=== PATIENT | male | born 1950 | race Caucasian/White ===

== ENCOUNTER 2024-09-12 16:11 | Inpatient (IN) | payer MEDICARE ==
[~2024-09-12] VITALS: Ht 172.7 cm; Wt 81.7 kg
[~2024-09-12 16:11] MED LIST: FURO20 PO; LISI20 PO
[2024-09-12 17:10] LABS: BASOPHILS ABSOLUTE AUTO 0.04 K/mm3 (0.00-0.23); BASOPHILS PERCENT AUTO 0 % (0-2); EOSINOPHILS ABSOLUTE AUTO 0.09 K/mm3 (0.00-0.68); EOSINOPHILS PERCENT AUTO 1 % (0-6); Hematocrit 52.1 % (37.0-53.0); Hemoglobin 17.3 g/dL (13.5-17.5); IMMATURE GRAN ABSOLUTE AUTO 0.09 K/mm3 (0.00-0.10); IMMATURE GRAN PERCENT AUTO 1 % (0-1); LYMPHOCYTES ABSOLUTE AUTO 1.36 K/mm3 (0.84-5.20); LYMPHOCYTES PERCENT AUTO 8 % (21-46); MONOCYTES ABSOLUTE AUTO 0.94 K/mm3 (0.16-1.47); MONOCYTES PERCENT AUTO 6 % (4-13); Mean Corpuscular HGB 30.2 pg (26.0-34.0); Mean Corpuscular HGB Conc 33.2 g/dL (31.5-36.5); Mean Corpuscular Volume 91 fL (80-100); Mean Platelet Volume 9.8 fL (9.1-12.4); NEUTROPHILS ABSOLUTE AUTO 13.61 K/mm3 (1.96-9.15); NEUTROPHILS PERCENT AUTO 84 % (41-73); Platelet Count 265 K/mm3 (150-400); RDW Coefficient Variation 13.3 % (11.7-14.2); RDW Standard Deviation 45.1 fL (35.1-46.3); Red Blood Cell Count 5.72 M/mm3 (4.30-5.90); White Blood Cell Count 16.13 K/mm3 (4.00-11.30)
[2024-09-12] MEDS ORDERED: NS 1,000 ML IV SCH (17:15)
[2024-09-12] MEDS ORDERED: Clindamycin 900mg in D5W 50ML 50 ML IV ONE (17:15)
[2024-09-12 17:30] LABS: Albumin, Blood 3.3 g/dL (3.4-5.0); Albumin/Globulin Ratio 0.8 (0.8-1.8); Bilirubin, Total 0.6 mg/dL (0.1-1.0); Bun/Creatinine Ratio 16.3 (12.0-20.0); Calcium, Blood 9.2 mg/dL (8.5-10.1); Creatinine, Blood 0.98 mg/dL (0.60-1.20); Globulin, Blood 4.3 g/dL (2.2-4.0); Potassium, Blood 4.4 mmol/L (3.5-5.5); Total Protein, Blood 7.6 g/dL (6.4-8.2)
[2024-09-12 18:42] LABS: Source, Urine Clean Catch
[2024-09-12 18:45] LABS: Appearance, Urine Hazy (Clear); Bilirubin, Urine Neg (Neg); Blood, Urine 1+ (Neg); Color, Urine Yellow (P-Yellow); Glucose Qualitative, Urine Neg (Neg); Ketones, Urine Neg (Neg); Leukocyte Esterase, Urine 2+ (Neg); Nitrite, Urine Neg (Neg); Protein, Urine 1+ (Neg); Urobilinogen, Urine NORM (Normal)
[2024-09-12 18:52] LABS: Bacteria Few /hpf; Mucus Light (0-Heavy); Squamous Epithelial Cells Few /hpf (Few); White Blood Cells, Urine 25-50 /hpf (0-5)
[2024-09-12 18:52] LABS: Influenza A, PCR NEGATIVE (NEGATIVE); Influenza B, PCR NEGATIVE (NEGATIVE); Resp Syncytial Virus, PCR NEGATIVE (NEGATIVE); SARS-Cov-2 (COVID-19) PCR, MMC NEGATIVE (NEGATIVE)
[2024-09-12] MEDS ORDERED: Acetaminophen 500 MG Tab PO ONE (18:55)
[2024-09-12] MEDS ORDERED: CefTRIAXone Sodium 1,000 MG in NS 100 ML IV ONE (19:00)
[2024-09-12] MEDS ORDERED: Lactated Ringer's 1,000 ML IV SCH (19:35)
[2024-09-12] MEDS ORDERED: FLU VACC TS2024-25(6MOS UP)/PF 45 MCG/0.5 ML SYRINGE IM ONE (19:35)
[2024-09-12] MEDS ORDERED: Ondansetron HCl 2 MG / ML 2ML Vial IV PRN (19:35)
[2024-09-12] MEDS ORDERED: Ketorolac Tromethamine 15mg Vial IV ONE (20:00)
[2024-09-12] MEDS ORDERED: Vancomycin HCL 1,250 MG in NS 250 ML IV ONE (20:05)
[2024-09-12] MEDS ORDERED: Sennosides 8.6 MG Tab PO SCH (21:00)
[2024-09-12] MEDS ORDERED: Lactobacil 2-S.Thermo-Bifido 1 1 Cap PO SCH (21:00)
[2024-09-12 22:44] VITALS: BP 139/79
[2024-09-13 05:09] VITALS: BP 166/85
--- NOTE | 2024-09-13 06:02 | NUR ---
SHIFT SUMMARY PT ADMITTED LAST NIGHT AT 2230. 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 NASAL SWAB COLLECTED AND SENT TO THE LAB. PICTURE TAKEN OF ABSCESS/ CELLULITIS AFTER CONSENT OBTAINED. PICTURE IN CHART. WOUND WITH SMALL AMOUNTS OF SEROSANG DRAINAGE. LEFT OPEN TO AIR WITH CHUX UNDERNEATH DUE TO PENDING ULTRASOUND TO THE AREA. PT DENIES PAIN. SLEPT ON/OF THROUGH THE NIGHT. BED IN LOWEST POSITION, CALL LIGHT WITHIN REACH, SIDE RAILS UP X2.
[2024-09-13 06:48] LABS: BASOPHILS ABSOLUTE AUTO 0.03 K/mm3 (0.00-0.23); BASOPHILS PERCENT AUTO 0 % (0-2); EOSINOPHILS ABSOLUTE AUTO 0.22 K/mm3 (0.00-0.68); EOSINOPHILS PERCENT AUTO 2 % (0-6); Hematocrit 46.4 % (37.0-53.0); Hemoglobin 14.9 g/dL (13.5-17.5); IMMATURE GRAN ABSOLUTE AUTO 0.05 K/mm3 (0.00-0.10); IMMATURE GRAN PERCENT AUTO 0 % (0-1); LYMPHOCYTES ABSOLUTE AUTO 1.36 K/mm3 (0.84-5.20); LYMPHOCYTES PERCENT AUTO 10 % (21-46); MONOCYTES ABSOLUTE AUTO 1.13 K/mm3 (0.16-1.47); MONOCYTES PERCENT AUTO 9 % (4-13); Mean Corpuscular HGB 29.7 pg (26.0-34.0); Mean Corpuscular HGB Conc 32.1 g/dL (31.5-36.5); Mean Corpuscular Volume 93 fL (80-100); Mean Platelet Volume 10.3 fL (9.1-12.4); NEUTROPHILS ABSOLUTE AUTO 10.44 K/mm3 (1.96-9.15); NEUTROPHILS PERCENT AUTO 79 % (41-73); Platelet Count 237 K/mm3 (150-400); RDW Coefficient Variation 13.5 % (11.7-14.2); RDW Standard Deviation 45.9 fL (35.1-46.3); Red Blood Cell Count 5.01 M/mm3 (4.30-5.90); White Blood Cell Count 13.23 K/mm3 (4.00-11.30)
[2024-09-13 07:13] LABS: Bun/Creatinine Ratio 18.4 (12.0-20.0); Calcium, Blood 8.4 mg/dL (8.5-10.1); Creatinine, Blood 0.92 mg/dL (0.60-1.20); Potassium, Blood 3.8 mmol/L (3.5-5.5)
[2024-09-13 07:30] VITALS: BP 151/88
[2024-09-13] MEDS ORDERED: Vancomycin HCL 1,000 MG in NS 250 ML IV SCH (08:00)
[2024-09-13] MEDS ORDERED: Enoxaparin 40 MG/0.4 ML SYR SC SCH (09:00)
[2024-09-13] MEDS ORDERED: Lisinopril 10 MG Tab PO SCH (09:00)
[2024-09-13] MEDS ORDERED: NS 250 ML IV PRN (10:40)
[2024-09-13] MEDS ORDERED: Lisinopril 10 MG Tab PO ONE (12:00)
[2024-09-13 12:54] VITALS: BP 124/79
[2024-09-13 17:03] VITALS: BP 144/88
--- NOTE | 2024-09-13 17:36 | NUR ---
SHIFT SUMMARY: PATIENT A/OX3, PLEASANT AND COOPERATIVE c CARE. PATIENT DENIES CP/PRESSURE, SOB, N/V AND DIZZINESS. PATIENT HAS HAD NO FEVER THIS SHIFT. PATIENT HAS SKIN BOILS TO LOWER BACK, IT IS OPEN c SCANT DRAINAIGE, FIRM, RED AROUND THE SITE AND SPREAD TO L SIDE, OUTLINE MARKING IN PLACED. DR. OSCAR AND DR. MCKEON IS AWARE OF THIS ISSUE. MIPELEX DRESSING IN PLACED TO LOWER BACK. PATIENT HAD PT EVAL TODAY, RECOMMENDING [facility]. PATIENT HAS GREAT APPETITE, CONTINENT OF BOWEL/BLADDER, USES URINAL AND AMBULATES TO BATHROOM c SBA/FWW. PATIENT SAT UP IN CHAIR FOR ABOUT 4 HRS THIS SHIFT, TOLERATING WELL. PATIENT RECEIVED IV ABX/SCHEDULED MED PER EMAR. VITAL SIGNS REVIEWED. PATIENT CURRENTLY UP IN CHAIR FOR DINNER. CHAIR ALARM ON FOR SAFETY. CALL LIGHT IN REACH. PATIENT HAS NO COMPLAINTS OR DENIES NEW CONCERNED, BUT EXPRESSES WOULD LIKE TO GO HOME TOMORROW.
[2024-09-13 19:45] VITALS: BP 126/75
[2024-09-13] MEDS ORDERED: CefTRIAXone Sodium 1,000 MG in NS 100 ML IV SCH (20:00)
[2024-09-14] MEDS ORDERED: NS 250 ML IV PRN (00:20)
[2024-09-14 02:16] VITALS: BP 159/89
--- NOTE | 2024-09-14 05:45 | NUR ---
SHIFT SUMMARY: Pt is admitted for cutaneous abscess of back and is a full code. Is alert and able to make needs known. ADLs have been SBA. is on ISO for HX of MRSA. denies pain or discomfort when asked. Dressing to lower back is CDI.
[2024-09-14 07:23] LABS: BASOPHILS ABSOLUTE AUTO 0.04 K/mm3 (0.00-0.23); BASOPHILS PERCENT AUTO 0 % (0-2); EOSINOPHILS ABSOLUTE AUTO 0.35 K/mm3 (0.00-0.68); EOSINOPHILS PERCENT AUTO 4 % (0-6); Hematocrit 46.2 % (37.0-53.0); IMMATURE GRAN ABSOLUTE AUTO 0.03 K/mm3 (0.00-0.10); IMMATURE GRAN PERCENT AUTO 0 % (0-1); LYMPHOCYTES PERCENT AUTO 13 % (21-46); MONOCYTES ABSOLUTE AUTO 0.74 K/mm3 (0.16-1.47); MONOCYTES PERCENT AUTO 8 % (4-13); Mean Corpuscular HGB Conc 32.5 g/dL (31.5-36.5); Mean Corpuscular Volume 92 fL (80-100); NEUTROPHILS ABSOLUTE AUTO 7.41 K/mm3 (1.96-9.15); NEUTROPHILS PERCENT AUTO 75 % (41-73); Platelet Count 261 K/mm3 (150-400); RDW Coefficient Variation 13.5 % (11.7-14.2); RDW Standard Deviation 45.9 fL (35.1-46.3); White Blood Cell Count 9.87 K/mm3 (4.00-11.30)
[2024-09-14 07:41] LABS: Bun/Creatinine Ratio 12.8 (12.0-20.0); Calcium, Blood 8.8 mg/dL (8.5-10.1); Creatinine, Blood 1.09 mg/dL (0.60-1.20); Potassium, Blood 4.6 mmol/L (3.5-5.5)
[2024-09-14 07:52] VITALS: BP 143/90
[2024-09-14] MEDS ORDERED: Trimethoprim/Sulfamethoxazole DS Tab PO SCH (08:18)
[2024-09-14] MEDS ORDERED: Lisinopril 20 MG Tab PO SCH (09:00)
[2024-09-14] MEDS ORDERED: SULTRIDS PO (12:50)
[2024-09-14] MEDS ORDERED: MUPIROCIN1 G1 TOP (13:29)
--- NOTE | 2024-09-14 13:56 | NUR ---
SHIFT/DISCHARGE SUMMARY: PATIENT HAS HAD NO NEW ACUTE CHANGES THIS SHIFT. PATIENT A/OX3, FLAT AFFECT, PLEASANT AND COOPERATIVE c CARE. PATIENT DENIES CP/PRESSURE, N/V, SOB, AND DIZZINESS. PATIENT HAS HAD NO FEVER THIS SHIFT. PATIENT ABSCESS TO LOWER BACK, DRESSING CHANGED AND REDNESS TO L SIDE IT APPEARS NO CHANGES BASED ON AN OUTLINE MARKING. PATIENT RECEIVED PO ABX/SCHEDULED MEDS PER EMAR. VITAL SIGNS REVIEWED. PATIENT HAS GREAT APPETITE, CONTINENT OF BOWEL/BLADDER, AMBULATES TO BATHROOM c SBA AND HAD ONE LARGE BM THIS SHIFT. VITAL SIGNS REVIEWED. PIV TO LAC DC'D BY BHASKAR VAZQUEZ. PATIENT DISCHARGE HOME c [facility]. DISCHARGE INSTRUCTIONS PACKET GIVEN TO PATIENT. PATIENT EDUCATED ON ADMITTING DX'S OF CUTANEOUS ABSCESS TO LOWER BACK, TX, DAILY DRESSING CHANGED, NEW RX AND TO F/U c PCP. PATIENT VERBALIZED UNDERSTANDING AND NO FURTHER QUESTIONS. RX WAS FAXED TO PATIENT PREFERRED [facility]ARM[facility]. WOUND DRESSING SUPPLY AND PERSONAL BELONGINGS WERE SENT c PATIENT. PATIENT LEFT THE ROOM AT 1345, TRANSPORTED VIA WHEELCHAIR BY THIS RN TO PATIENT ENTRANCE.
== END 2024-09-14 13:57 | disposition home health service (06) | DRG 872 ==
LOC: ER 16:11 → MEDS 19:30 → ERHOLD 19:30 → MEDS 22:29
PROVIDERS: Emergency Medicine; Nurse Practitioner Acute Care; ADMIT Student in an Organized Health Care Education/Training Program
DX: A41.9 Sepsis, unspecified organism (principal); L03.312 Cellulitis of back [any part except buttock and flank]; N39.0 Urinary tract infection, site not specified; I10 Essential (primary) hypertension; F90.9 Attention-deficit hyperactivity disorder, unspecified type; R39.15 Urgency of urination; L30.9 Dermatitis, unspecified; Z79.899 Other long term (current) drug therapy; Z91.81 History of falling; Z86.14 Personal history of Methicillin resistant Staphylococcus aureus infection
CPT/HCPCS: 0241U; 36415; 71046; 76705; 80048; 80053; 81001; 83605; 84484; 85025; 87086; 93005; 93010; 96365; 97116; 97162; 97530; 99285-25; A9270; J0696; J1650; J1885; J3370; J7030; J7050; J7120

== ENCOUNTER 2025-04-30 13:15 | Emergency (ER) | payer MEDICARE ==
[~2025-04-30] VITALS: Ht 172.7 cm; Wt 90.7 kg
[~2025-04-30 13:15] MED LIST changes: +MUPIROCIN1 G1 TOP; +SULTRIDS PO
[2025-04-30 13:39] LABS: BASOPHILS ABSOLUTE AUTO 0.05 K/mm3 (0.00-0.23); BASOPHILS PERCENT AUTO 0 % (0-2); EOSINOPHILS ABSOLUTE AUTO 0.26 K/mm3 (0.00-0.68); EOSINOPHILS PERCENT AUTO 2 % (0-6); Hematocrit 48.7 % (37.0-53.0); Hemoglobin 15.5 g/dL (13.5-17.5); IMMATURE GRAN ABSOLUTE AUTO 0.04 K/mm3 (0.00-0.10); IMMATURE GRAN PERCENT AUTO 0 % (0-1); LYMPHOCYTES ABSOLUTE AUTO 1.58 K/mm3 (0.84-5.20); LYMPHOCYTES PERCENT AUTO 13 % (21-46); MONOCYTES ABSOLUTE AUTO 0.96 K/mm3 (0.16-1.47); MONOCYTES PERCENT AUTO 8 % (4-13); Mean Corpuscular HGB Conc 31.8 g/dL (31.5-36.5); Mean Corpuscular Volume 92 fL (80-100); NEUTROPHILS ABSOLUTE AUTO 8.88 K/mm3 (1.96-9.15); NEUTROPHILS PERCENT AUTO 76 % (41-73); NRBC ABSOLUTE 0.00 K/mm3 (0.00-0.02); NRBC Auto 0.0 /100 WBC (0.0-0.2); Platelet Count 257 K/mm3 (150-400); RDW Coefficient Variation 13.0 % (11.7-14.2); RDW Standard Deviation 43.8 fL (35.1-46.3)
[2025-04-30 14:05] LABS: Alanine Aminotransfer (ALT/SGP 29.0 U/L (12-78); Albumin, Blood 3.4 g/dL (3.4-5.0); Albumin/Globulin Ratio 0.9 (0.8-1.8); Anion Gap 3.0 mmol/L (3-11); Aspartate Aminotrans (AST/SGOT 16.0 U/L (12-37); Bilirubin, Total 0.5 mg/dL (0.1-1.0); Blood Urea Nitrogen 13.0 mg/dL (8-24); CO2, Blood 32.0 mmol/L (21-32); Calcium, Blood 8.8 mg/dL (8.5-10.1); Chloride, Blood 107.0 mmol/L (98-108); Creatinine, Blood 1.0 mg/dL (0.60-1.20); Globulin, Blood 3.9 g/dL (2.2-4.0); Glucose, Blood 90.0 mg/dL (70-99); Potassium, Blood 4.4 mmol/L (3.5-5.5); Sodium, Blood 138.0 mmol/L (136-145); Total Protein, Blood 7.3 g/dL (6.4-8.2)
[2025-04-30] MEDS ORDERED: Trimethoprim/Sulfamethoxazole DS Tab PO ONE (17:35)
[2025-04-30] MEDS ORDERED: Ketorolac Tromethamine 30mg Vial IV ONE (17:40)
[2025-04-30] MEDS ORDERED: SULTRIDS PO (17:50)
== END 2025-04-30 17:48 | disposition home or self-care (01) ==
LOC: ER 13:15
PROVIDERS: Emergency Medicine
DX: L02.31 Cutaneous abscess of buttock (principal); I10 Essential (primary) hypertension; Z79.899 Other long term (current) drug therapy; Z79.2 Long term (current) use of antibiotics
CPT/HCPCS: 10060; 80053; 85025; 96374; 99283-25; A9270; J1885